=== PATIENT | male | born 1970 | race Caucasian/White ===

== ENCOUNTER 2023-04-21 01:06 | Emergency (ER) | payer OTHER, SELFPAY ==
[2023-04-21 01:10] VITALS: BP 125/77; PULSE 60; RESP 18; TEMP 36.7; O2SAT 97; BMI 25.8
--- NOTE | 2023-04-21 01:12 | CTR_ITS ---
PROCEDURE INFORMATION: Exam: CT Head Without Contrast Exam date and time: 04/21/2023 1:19 AM Age: 52 years old Clinical indication: Pain; Headache; Patient HX: Patient says he has a growing lump to right forehead for past two years. Lump is visible just superior to restorationism area. Patient says he has experienced alot of pressure and vision changes the past couple of months; Additional info: LAURA TECHNIQUE: Imaging protocol: Computed tomography of the head without contrast. Radiation optimization: All CT scans at this facility use at least one of these dose optimization techniques: automated exposure control; mA and/or kV adjustment per patient size (includes targeted exams where dose is matched to clinical indication); or iterative reconstruction. REPORTING DATA: Count of CT and Cardiac NM exams in prior 12 months: This patient has received 0 known CTs and 0 known cardiac nuclear medicine studies in the 12 months prior to the current study. COMPARISON: No relevant prior studies available. RADIATION DOSE METRICS: Total DLP (mGy-cm): 1059.88 FINDINGS: Brain: Normal. No hemorrhage. Unremarkable white matter. No mass effect. Cerebral ventricles: No ventriculomegaly. Paranasal sinuses: Visualized sinuses are unremarkable. No fluid levels. Mastoid air cells: Visualized mastoid air cells are well aerated. Bones/joints: A 2.5 cm x 1.2 cm x 1.8 cm arachnoid cyst in the right frontal lateral region results in remodeling of the right frontal bone, which can probably be palpable. No calvarial fracture. Soft tissues: Unremarkable. CT/CT head wo con* [id number] IMPRESSION: 1. No acute intracranial findings. 2. A 2.5 cm x 1.2 cm x 1.8 cm arachnoid cyst in the right frontal lateral region results in remodeling of the right frontal bone, which can probably be palpable.
--- NOTE | 2023-04-21 01:13 | W.ED.HA ---
HPI - Headache General: Chief Complaint: Headache Stated Complaint: headache vision changes Time Seen by Provider: 04/21/23 01:07 Source: patient Mode of arrival: ambulatory Limitations: no limitations History of Present Illness: 52-year-old male states been having bilateral temporal headaches for the last 6 months. He states his headaches are intermittent in nature he states that headaches currently a 4 out of 10 states that he has some vision changes at times but denies any currently no slurred speech no weakness. He denies any worsening proving factors he has not been seen for these headaches in the past. Associated symptoms: Deny chest pain, fever(s), nausea, rash or vomiting Review of Systems Const: Denies: fever(s), chills, body aches or change in appetite Eyes: Reports: blurry vision; Denies: eye discomfort ENMT: Denies: throat pain or dental pain Card: Denies: chest pain Resp: Denies: dyspnea GI: Denies: abdominal pain, nausea, vomiting or diarrhea Musc: Denies: neck pain or back pain Skin/Breast: Denies: rash Neuro: Reports: headache(s) Physical Exam Const: COMMON NORMALS: no acute distress, patient oriented x3 and healthy appearing HENMT: COMMON NORMALS: normocephalic and atraumatic HEAD & SCALP: normocephalic and atraumatic Eye: COMMON NORMALS: Equal, round and reactive pupils present and EOMs intact bilaterally VISUAL ACUITY: Yes acuity normal VISUAL RODRIGUEZ: No peripheral vision loss, No central vision loss, No left visual field cut, No right visual field cut and No bitemporal visual field cut PUPIL: Yes Equal, round and reactive pupils present Neck/C-Spine: COMMON NORMALS: full ROM and supple Chest: COMMONS NORMALS: normal inspection of the chest Resp: COMMON NORMALS: normal respiratory effort, No retractions, No use of accessory muscles and clear to auscultation bilaterally AUSCULTATION: clear to auscultation bilaterally Cardio: COMMON NORMALS: regular rate, regular rhythm and No murmurs present (Cardio) RATE: regular rate RHYTHM: regular rhythm Extremity: COMMON NORMALS: normal to inspection and full ROM Neuro: COMMON NORMALS: patient oriented x3, moves all extremities and no focal motor deficits Psych: COMMON NORMALS: mental status grossly normal, Normal thought process present and cooperative THOUGHT PROCESS: Normal thought process present Skin: COMMON NORMALS: no rashes or lesions noted and no wounds GENERAL SKIN EXAM: no rashes or lesions noted Course Vital Signs: Vital signs: Vital Signs Temperature 98.1 F 04/21/23 01:10 Pulse Rate 50 L 04/21/23 02:18 Respiratory Rate 16 04/21/23 02:18 Blood Pressure 112/73 04/21/23 02:18 Pulse Oximetry 95 04/21/23 02:18 Oxygen Delivery Me thod Room Air 04/21/23 02:18 MDM - Headache Medical Decision Making Patient presents here with a headache he does have a arachnoid cyst could be causing these chronic headaches head CT otherwise is normal he is to follow-up with PCP and return if worsening. Medical Records I reviewed the patient's medical records. Lab Data Radiology Impressions Head CT 04/21/23 01:12 IMPRESSION: 1. No acute intracranial findings. 2. A 2.5 cm x 1.2 cm x 1.8 cm arachnoid cyst in the right frontal lateral region results in remodeling of the right frontal bone, which can probably be palpable. All radiology interpretation(s) finalized by discharge Discharge Plan Discharge Patient Disposition: Home Clinical Impression: Headache, Intracranial arachnoid cyst Condition: Stable Discharge Orders: Discharge ED (Routine); Ordered 04/21/23 Ordered By: Yonatan England Referrals: Devonte Denis [Primary Care Provider] - 1-3 days Discharge Diet: Advance as tolerated Discharge Activity: Resume usual activity Patient Instructions: General Headache (ED) Coding Level of Care Code ED Stone Crusher Operator for Jessenia Trent
[2023-04-21] MEDS: ketorolac 30 mg/mL INJ IM (01:16)
[2023-04-21 01:21] VITALS: BP 116/79; RESP 15; O2SAT 98
[2023-04-21 02:18] VITALS: BP 112/73; PULSE 50; RESP 16; O2SAT 95
[2023-04-21 02:50] VITALS: BP 112/73; PULSE 50; RESP 16; O2SAT 95
== END 2023-04-21 02:51 | disposition home or self-care (01) ==
PROVIDERS: Emergency Provider Emergency Medicine; PCP Internal Medicine
DX: R51.9 Headache, unspecified (principal); G93.0 Cerebral cysts
CPT/HCPCS: 70450; 96372; 99284; J1885

== ENCOUNTER 2023-05-03 04:57 | Inpatient (IN) | payer OTHER, SELFPAY ==
[2023-05-03 05:04] VITALS: BP 163/100; PULSE 118; RESP 22; TEMP 37.2; O2SAT 98
--- NOTE | 2023-05-03 05:08 | ED_ITS ---
HPI - Abdominal Pain General: Chief Complaint: Psychiatric Symptoms Stated Complaint: stomach pains, nasea Time Seen by Provider: 05/03/23 04:58 Source: patient Mode of arrival: ambulatory Limitations: no limitations History of Present Illness: 52-year-old male who presents here stating he thinks that people are out to poison him. He states his whole family and has girlfriend has become seriously against him and he has brought some candy here he states they are trying to poison him. He states been having abdominal pain. Patient appears psychotic here he has flight of ideas. He states that he does not trust anyone he refused to speak to me at first but then did agree. He denies any psychiatric history denies drug use Associated Symptoms: Reports nausea; Denies chills, diarrhea, fever(s) and vomiting Review of Systems Const: Denies: fever(s), chills, body aches or change in appetite Eyes: Denies: blurry vision or eye discomfort ENMT: Denies: throat pain or dental pain Card: Denies: chest pain Resp: Denies: dyspnea GI: Reports: abdominal pain and nausea; Denies: vomiting or diarrhea Musc: Denies: neck pain or back pain Skin/Breast: Denies: rash Psych: Reports: anxiety; Denies: depression Physical Exam Const: COMMON NORMALS: patient oriented x3 GENERAL APPEARANCE: anxious and disheveled HENMT: COMMON NORMALS: normocephalic and atraumatic HEAD & SCALP: normocephalic and atraumatic Neck/C-Spine: COMMON NORMALS: full ROM and supple Chest: COMMONS NORMALS: normal inspection of the chest and normal palpation of entire chest wall Resp: COMMON NORMALS: normal respiratory effort, No retractions, No use of accessory muscles and clear to auscultation bilaterally AUSCULTATION: clear to auscultation bilaterally Cardio: COMMON NORMALS: regular rate, regular rhythm and No murmurs present (Cardio) RATE: regular rate RHYTHM: regular rhythm GI: COMMON NORMALS: Normal to inspection, nondistended, normoactive bowel sounds present, Soft to palpation, non-tender and no masses PALPATION: Yes Soft to palpation Extremity: COMMON NORMALS: normal to inspection and full ROM Neuro: COMMON NORMALS: patient oriented x3, moves all extremities and no focal motor deficits Psych: COMMON NORMALS: cooperative ACTIVITY/MOTOR BEHAVIOR: Yes psychomotor agitation SPEECH: Yes rapid MOOD & AFFECT: Yes elevated mood THOUGHT PROCESS: Flight of ideas present Skin: COMMON NORMALS: no rashes or lesions noted and no wounds GENERAL SKIN EXAM: no rashes or lesions noted Course Vital Signs: Vital signs: Vital Signs Temperature 97.8 F 05/03/23 14:00 Pulse Rate 79 05/03/23 14:00 Respiratory Rate 16 05/03/23 14:00 Blood Pressure 154/99 05/03/23 14:00 Pulse Oximetry 97 05/03/23 14:00 Oxygen Delivery Me thod Room Air 05/03/23 14:00 MDM - Abdominal Pain Medical Decision Making Patient presents here with abdominal pain along with acute psychosis. He is extremely paranoid here thinking that people are out to get him I did fill out an affidavit and patient's pending labs along with CT of his abdomen care turned over to Dr. Bales at this time. Will likely be a psychiatric admission if medically cleared Medical Records I reviewed the patient's medical records. Lab Data I reviewed the patient's lab results. 05/03/23 05:18 05/03/23 05:40 Labs/Radiology: Radiology Impressions Abdomen/Pelvis CT 05/03/23 05:30 IMPRESSION: No acute subdiaphragmatic pathology. Laboratory Results WBC 16.45 10^3/uL (3.29-11.43) H 05/03/23 05:18 RBC 4.96 10^6/uL (3.85-5.65) 05/03/23 05:18 Hgb 15.40 g/dL (11.27-16.99) 05/03/23 05:18 Hct 44.4 % (37-53) 05/03/23 05:18 MCV 89.5 fl (82-101) 05/03/23 05:18 MCH 31.0 pg (27-33) 05/03/23 05:18 MCHC 34.7 g/dL (30-55) 05/03/23 05:18 RDW 13.1 % (12.1-15.1) 05/03/23 05:18 Plt Count 192 10^3/cmm (157-399) 05/03/23 05:18 MPV 12.0 fL (7.4-10.4) H 05/03/23 05:18 Neut % (Auto) 68.0 % 05/03/23 05:18 Lymph % (Auto) 23.3 % 05/03/23 05:18 [place] % (Auto) 7.1 % 05/03/23 05:18 Eos % (Auto) 0.5 % 05/03/23 05:18 Baso % (Auto) 0.7 % 05/03/23 05:18 Neut # (Auto) 11.18 10^3/uL (1.8-7.7) H 05/03/23 05:18 Lymph # (Auto) 3.8 10^3/uL (0.8-4.8) 05/03/23 05:18 [place] # (Auto) 1.2 10^3/uL (0.2-0.9) H 05/03/23 05:18 Eos # (Auto) 0.1 10^3/uL (0.0-0.8) 05/03/23 05:18 Baso # (Auto) 0.1 10^3/uL (0.0-0.1) 05/03/23 05:18 Nucleated RBC % (auto) 0 % 05/03/23 05:18 Nucleated RBCs # 0.0 /100WBC 05/03/23 05:18 Sodium 141 mmol/L (136-145) 05/03/23 05:40 Potassium 3.3 mmol/L (3.5-5.1) L 05/03/23 05:40 Chloride 106 mmol/L (98-107) 05/03/23 05:40 Carbon Dioxide 22 mmol/L (22-29) 05/03/23 05:40 Anion Gap 16.3 (5-19) 05/03/23 05:40 BUN 20 mg/dL (6-20) 05/03/23 05:40 Creatinine 1.0 mg/dL (0.7-1.2) 05/03/23 05:40 GFR Calculation 78.5 mL/min (90-130) L 05/03/23 05:40 Glucose 123 mg/dL (65-115) H 05/03/23 05:40 Calculated Osmolality 296 mOsm/kg (285-295) H 05/03/23 05:40 Calcium 9.8 mg/dL (8.5-10.5) 05/03/23 05:40 Total Bilirubin 0.8 mg/dL (0.15-1.2) 05/03/23 05:40 AST 16 U/L (0-40) 05/03/23 05:40 ALT 10 U/L (0-41) 05/03/23 05:40 Alkaline Phosphatase 105 U/L (40-130) 05/03/23 05:40 Total Protein 7.4 g/dL (6.6-8.7) 05/03/23 05:40 Albumin 4.6 g/dL (3.5-5.2) 05/03/23 05:40 Globulin 2.8 g/dL (1.3-4.6) 05/03/23 05:40 Lipase 40 U/L (13-60) 05/03/23 05:40 Urine Color Dark yellow (Yellow) 05/03/23 05:40 Urine Appearance Clear (CLEAR) 05/03/23 05:40 Urine pH 5 (5-7) 05/03/23 05:40 Ur Specific [place] 1.025 (1.005-1.030) 05/03/23 05:40 Urine Protein 1+ (Negative) H 05/03/23 05:40 Urine Glucose (UA) Trace (Normal) H 05/03/23 05:40 Urine Ketones 1+ (Negative) H 05/03/23 05:40 Urine Blood Neg (Negative) 05/03/23 05:40 Urine Nitrate Negative (Negative) 05/03/23 05:40 Urine Bilirubin 1+ (Negative) H 05/03/23 05:40 Urine Urobilinogen 4 mg/dL (Negative) H 05/03/23 05:40 Ur Leukocyte Esterase Trace (Negative) H 05/03/23 05:40 Urine RBC Rare /hpf (0-2) 05/03/23 05:40 Urine WBC 0-4 /hpf (0-5) H 05/03/23 05:40 Ur Squamous Epith Cells 0-4 /hpf (0-5) H 05/03/23 05:40 Amorphous Sediment 1+ /hpf 05/03/23 05:40 Urine Bacteria Trace /hpf (NONE) 05/03/23 05:40 Hyaline Casts 0-4 /lpf H 05/03/23 05:40 Urine Mucus 2+ /hpf 05/03/23 05:40 Salicylates 0.6 mg/dL (3-10) L 05/03/23 05:40 Urine Opiates Screen Negative ng/mL (Negative) 05/03/23 05:40 Acetaminophen < 5.0 ug/mL (10-30) L 05/03/23 05:40 Ur Barbiturates Screen Negative ng/mL (Negative) 05/03/23 05:40 Ur Phencyclidine Scrn Negative ng/mL (Negative) 05/03/23 05:40 Ur Amphetamines Screen Negative ng/mL (Negative) 05/03/23 05:40 U Benzodiazepines Scrn Negative ng/mL (Negative) 05/03/23 05:40 Urine Cocaine Screen Negative ng/mL (Negative) 05/03/23 05:40 U Marijuana (THC) Screen Positive ng/mL (Negative) H 05/03/23 05:40 Ethyl Alcohol Cancelled 05/03/23 05:18 All radiology interpretation(s) finalized by discharge Discharge Plan Discharge Patient Disposition: Admitted As Inpatient Admit Provider: Gordo Phelan Clinical Impression: Acute psychosis Condition: Stable Coding Level of Care Code ED Semiautomatic Taper Operator for Jessenia Trent
[2023-05-03 05:28] LABS: Basophils # 0.1 10^3/uL (0.0-0.1); Basophils % 0.7 %; Eosinophils # 0.1 10^3/uL (0.0-0.8); Eosinophils % 0.5 %; Hematocrit 44.4 % (37-53); Lymphocytes # 3.8 10^3/uL (0.8-4.8); Lymphocytes % 23.3 %; Mean Corpuscular HGB Conc 34.7 g/dL (30-55); Mean Corpuscular Volume 89.5 fl (82-101); Monocytes # 1.2 10^3/uL (0.2-0.9); Monocytes % 7.1 %; Neutrophils # 11.18 10^3/uL (1.8-7.7); Nucleated Red Blood Cells % 0 %; Platelet Count 192 10^3/cmm (157-399); Red Blood Count 4.96 10^6/uL (3.85-5.65); Red Cell Distribution Width 13.1 % (12.1-15.1); White Blood Count 16.45 10^3/uL (3.29-11.43)
--- NOTE | 2023-05-03 05:30 | CTR_ITS ---
PROCEDURE INFORMATION: Exam: CT Abdomen And Pelvis With Contrast Exam date and time: 05/03/2023 6:07 AM Age: 52 years old Clinical indication: Abdominal pain; Generalized; Prior surgery; Surgery date: 6+ months; Surgery type: Appy; Patient HX: Diffuse abd pain with nausea TECHNIQUE: Imaging protocol: Computed tomography of the abdomen and pelvis with contrast. Radiation optimization: All CT scans at this facility use at least one of these dose optimization techniques: automated exposure control; mA and/or kV adjustment per patient size (includes targeted exams where dose is matched to clinical indication); or iterative reconstruction. Contrast material: OMNI 350; Contrast volume: 100 ml; Contrast route: INTRAVENOUS (IV); REPORTING DATA: Count of CT and Cardiac NM exams in prior 12 months: This patient has received [address] and 0 known cardiac nuclear medicine studies in the 12 months prior to the current study. COMPARISON: CR XR chest 1V [id number] 06/18/2018 1:54 PM RADIATION DOSE METRICS: Total DLP (mGy-cm): 433.68 FINDINGS: Liver: Tiny hepatic cysts. Gallbladder and bile ducts: Normal. No calcified stones. No ductal dilation. Pancreas: Normal. No ductal dilation. Spleen: Normal. No splenomegaly. Adrenal glands: Normal. No mass. Kidneys and ureters: Nonobstructing renal calculi. Stomach and bowel: Unremarkable. No obstruction. No mucosal thickening. Appendix: No evidence of appendicitis. Intraperitoneal space: Unremarkable. No free air. No significant fluid collection. Vasculature: Unremarkable. No abdominal aortic aneurysm. Lymph nodes: Unremarkable. No enlarged lymph nodes. Urinary bladder: Unremarkable as visualized. Reproductive: Unremarkable as visualized. Bones/joints: Mild changes of subchondral sclerosis in each proximal femur, mild avascular necrosis is. Soft tissues: Unremarkable. CT/CT abdomen pelvis w con* [id number] IMPRESSION: No acute subdiaphragmatic pathology.
--- NOTE | 2023-05-03 05:51 | ECG_ITS ---
[facility] Test Date: 2023-05-03 Pat Name: David Varma Department: Room: Gender: Male Tipple Mechanic: : 1970 Requested By: Yonatan England Order Number: [id number] Jazzy MD: Khoa Pickens M.D. Measurements Intervals [place] Rate: 70 P: 72 AL: 144 QRS: 65 QRSD: 92 T: 60 QT: 384 QTc: 416 Interpretive Statements SINUS RHYTHM WITH SINUS ARRHYTHMIA Normal ECG Compared to ECG 06/18/2018 16:12:17 Sinus bradycardia no longer present Electronically Signed On 05-03-2023 13:38:55 WATER SANDER by Khoa Pickens M.D. [email or web address]
[2023-05-03 06:08] LABS: Amphetamines Screen Urine Negative (Negative); Barbiturates Screen Urine Negative (Negative); Benzodiazepines Screen Urine Negative (Negative); Cocaine Screen Urine Negative (Negative); Opiate Screen Urine Negative (Negative); PCP Screen Urine Negative (Negative); THC Screen Urine Positive (Negative)
[2023-05-03 06:09] LABS: Glucose Urine UA Trace (Normal); Protein Urine 1+ (Negative); Specific Gravity, Urine 1.025 (1.005-1.030); Urine Appearance Clear (CLEAR); Urine Color Dark Yellow (Yellow); pH Urine 5 (5-7)
[2023-05-03] MEDS: iohexol 350 mg/mL 500 mL Btl (per mL) IV (06:09)
[2023-05-03 06:10] LABS: Add Urine Culture? No; Add Urine Microscopic? YES; Amorphous Sediment Urine 1+ /hpf; Bacteria Urine TRACE /hpf; Bilirubin Urine 1+ (Negative); Blood Urine Neg (Negative); Hyaline Casts Urine 0-4 /lpf; Ketones Urine 1+ (Negative); Leukocyte Esterase Urine Trace (Negative); Mucus Urine 2+ /hpf; Nitrate Urine Negative (Negative); RBC Urine RARE /hpf (0-2); Squamous Epithelial Cell Urine 0-4 /hpf (0-5); Urobilinogen Urine 4 mg/dL (Negative); WBC Urine 0-4 /hpf (0-5)
[2023-05-03 06:17] LABS: Alanine Aminotransferase 10 U/L (0-41); Albumin Level 4.6 g/dL (3.5-5.2); Alkaline Phosphatase 105 U/L (40-130); Anion Gap 16.3 (5-19); Aspartate Amino Transferase 16 U/L (0-40); Blood Urea Nitrogen 20 mg/dL (6-20); Calcium 9.8 mg/dL (8.5-10.5); Carbon Dioxide 22 mmol/L (22-29); Chloride 106 mmol/L (98-107); Globulin 2.8 g/dL (1.3-4.6); Glomerular Filtration Rate 78.5 mL/min (90-130); Glucose 123 mg/dL (65-115); Lipase 40 U/L (13-60); Osmolality Calculated 296 mOsm/kg (285-295); Potassium 3.3 mmol/L (3.5-5.1); Salicylate 0.6 mg/dL (3-10); Sodium 141 mmol/L (136-145); Total Bilirubin 0.8 mg/dL (0.15-1.2); Total Protein 7.4 g/dL (6.6-8.7)
[2023-05-03 06:18] LABS: Acetaminophen < 5.0 ug/mL (10-30)
[2023-05-03 09:28] VITALS: BP 122/81; PULSE 57; O2SAT 98
[2023-05-03 09:36] VITALS: BP 154/99; PULSE 79; RESP 16; TEMP 36.6; O2SAT 97
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
[2023-05-03 14:00] VITALS: BP 154/99; PULSE 79; RESP 16; TEMP 36.6; O2SAT 97
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
[2023-05-03 18:49] LABS: Basophils # 0.1 10^3/uL (0.0-0.1); Basophils % 1.2 %; Eosinophils # 0.2 10^3/uL (0.0-0.8); Eosinophils % 2.6 %; Hematocrit 45.3 % (37-53); Lymphocytes # 3.4 10^3/uL (0.8-4.8); Lymphocytes % 42.3 %; Mean Corpuscular HGB Conc 34.4 g/dL (30-55); Mean Corpuscular Hemoglobin 31.1 pg (27-33); Mean Corpuscular Volume 90.4 fl (82-101); Mean Platelet Volume 12.2 fL (7.4-10.4); Monocytes # 0.9 10^3/uL (0.2-0.9); Monocytes % 10.8 %; Neutrophils # 3.44 10^3/uL (1.8-7.7); Neutrophils % 42.9 %; Nucleated Red Blood Cells % 0 %; Platelet Count 137 10^3/cmm (157-399); Red Blood Count 5.01 10^6/uL (3.85-5.65); Red Cell Distribution Width 13.2 % (12.1-15.1); White Blood Count 8.04 10^3/uL (3.29-11.43)
[2023-05-03 18:50] LABS: Erythrocyte Sedimentation Rate 10 mm/hr (0-10)
[2023-05-03 19:12] LABS: Alanine Aminotransferase 9 U/L (0-41); Albumin Level 4.7 g/dL (3.5-5.2); Alkaline Phosphatase 103 U/L (40-130); Anion Gap 15.3 (5-19); Aspartate Amino Transferase 15 U/L (0-40); Blood Urea Nitrogen 18 mg/dL (6-20); Calcium 9.5 mg/dL (8.5-10.5); Carbon Dioxide 25 mmol/L (22-29); Chloride 101 mmol/L (98-107); Creatinine Clr Calc Pharmacy 107.0514; Globulin 2.6 g/dL (1.3-4.6); Glomerular Filtration Rate 101.5 mL/min (90-130); Glucose 100 mg/dL (65-115); Osmolality Calculated 288 mOsm/kg (285-295); Potassium 3.3 mmol/L (3.5-5.1); Sodium 138 mmol/L (136-145); Total Bilirubin 0.9 mg/dL (0.15-1.2); Total Protein 7.3 g/dL (6.6-8.7)
[2023-05-03 19:21] LABS: Slide Review Slide Review Perform
[2023-05-03 19:58] VITALS: BP 120/86; PULSE 98; RESP 18; O2SAT 97
[2023-05-03] MEDS: potassium chloride ER 20 mEq Tablet 40 MEQ PO (22:43)
[2023-05-04 06:00] VITALS: BP 123/83; PULSE 63; RESP 18; O2SAT 97
[2023-05-04] MEDS: potassium chloride ER 20 mEq Tablet 40 MEQ PO (09:25)
--- NOTE | 2023-05-04 09:26 | PC.NURSE ---
RECEIVED REPORT FROM CONSULTING SOLUTION DIRECTOR STATING THAT PT SPIT OUT HIS ONE TIME ORDER OF POTASSIUM. THIS WAS CONFIRMED THIS MORNING BY PT STATEMENTS. PT STATED THAT HE DID NOT TRUST THE NIGHT NURSE STATING THAT HE WAS UNCOMFORTABLE HOW BIG THEY WERE AND THE WAY SHE GAVE THEM TO ME. PHYSICIAN WAS NOTIFIED THIS MORNING AND GAVE VERBAL ORDER TO THIS NURSE TO REORDER THE MEDICATION AND ADMINISTER IT PT STATED HE WOULD BE WILLING TO TAKE MEDICATION FROM THIS NURSE.
[2023-05-04 14:00] VITALS: BP 126/85; PULSE 61; RESP 14; TEMP 36.9; O2SAT 98
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
[2023-05-04 20:30] VITALS: BP 158/92; PULSE 58; RESP 18; TEMP 36.7; O2SAT 99
--- NOTE | 2023-05-05 08:51 | PC.NURSE ---
shift assessment denies SI/HI, did state I am having hallucinations yes, seeing things, but they are blurry. told staff this is not normal for him. cooperative with care.
[2023-05-05 14:00] VITALS: BP 144/89; PULSE 63; RESP 16; TEMP 36.6; O2SAT 97
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
[2023-05-05 20:25] VITALS: BP 161/89; PULSE 63; RESP 18; TEMP 36.6; O2SAT 99
[2023-05-06 06:00] VITALS: RESP 16
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
[2023-05-06 14:00] VITALS: BP 128/83; PULSE 72; RESP 16; TEMP 36.4; O2SAT 95
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
[2023-05-06 20:07] VITALS: BP 143/92; PULSE 63; RESP 17; TEMP 36.6; O2SAT 97
[2023-05-06] MEDS: paliperidone ER 3 mg Tablet PO (20:32)
[2023-05-06] MEDS: trazodone 50 mg Tablet PO (20:32)
--- NOTE | 2023-05-06 21:19 | PC.NURSE ---
Patient approached the desk and asked to speak in private. He stated he felt like he could be targeted because felt there were 2 former prisoners here and they where making shanks in the day room and talking intermediate lingo . I reminded him that we round every 15 minutes and if he ever feels unsafe to come talk to staff. Also to let staff know next time they are making a shank . Patient stated that cleared his mind and that he felt like he would sleep better tonight.
[2023-05-07 06:00] VITALS: BP 138/90; PULSE 101; RESP 18; O2SAT 96
[2023-05-07 14:00] VITALS: BP 130/89; PULSE 64; RESP 16; TEMP 36.3; O2SAT 99
--- NOTE | 2023-05-07 16:45 | P.NPUPN_ITS ---
Subjective NPU 2 Subjective: Patient presented today reporting that he is feeling okay. He denied having any side effects from the medication. He did spend a lot of time talking about cueing on and possibly being poisoned. We discussed the fact that we protect the food and that the food is given to everyone and that there is no concern for being poisoned. He reports that he understands that he is not thinking clearly and that he needs to be here and he appreciates the help. We discussed the possibility of a 96-hour hold given his level of paranoia. We did viral the likely need for an increase in the medication. Mental Status Exam 2 MSE Comments: This is a well-nourished well-developed white male in hospital scrubs with poor grooming, hygiene and limited eye contact. No abnormal movements except for mild psychomotor retardation. Cooperative with exam in mild distress. Speech was limited and decreased rate and volume. Mood described as good affect odd. Thought process organized. Thought content: Patient denied suicidal or homicidal ideation, he did endorse paranoia but denied current auditory or visual hallucinations. He was noteworthy of having significant conspiracies and paranoia. Attention and concentration were intact and memory was unreliable but none were formally tested. He is alert and oriented times person and place. Insight and judgment and impulse control are impaired. Vitals/I&O/Wt Last Vital Signs Temp 97.7 F 05/07/23 20:23 Pulse 65 05/07/23 20:23 Resp 18 05/07/23 20:23 BP 139/94 05/07/23 20:23 Pulse Ox 98 05/07/23 20:23 O2 Del Method Room Air 05/07/23 20:23 Data NPU 05/03/23 18:35 05/03/23 18:35 A&P Assessment and plan (1) Unspecified psychosis: Plan 52-year-old male with significant male who presents with bizarre delusions and paranoia currently on no medications at this time. 1. Encourage individual, group and milieu therapy. 2. Recommend sober living treatment at the highest level of care to which the patient is willing to commit. 3. Continue q-15 minute checks for safety.? 4? Will attempt to gather collateral information. 5. Patient was agreeable to trial of Invega today at 3mg at night, he may require forced medications on involuntary hold if deemed unsafe to return home. Increase Invega to 6 mg p.o. daily. Involuntary Hold Information 2 96 Hour Hold: 96 Hour Involuntary Admission: No Attestations NPU 2 Medical Necessity Statement*: Inpatient hospitalization is medically necessary and deemed to ?be ?the clinically appropriate intervention ?at this time.? We will monitor/initiate medications and make changes as indicated.?? The patient?s likely length of stay 7-10 days. Coding Level of Care Code Acute Code for Chg Fwd Diagnoses Unspecified psychosis F29
[2023-05-07] MEDS: paliperidone ER 3 mg Tablet 6 MG PO (20:11)
[2023-05-07 20:23] VITALS: BP 139/94; PULSE 65; RESP 18; TEMP 36.5; O2SAT 98
[2023-05-08 06:00] VITALS: RESP 17
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
--- NOTE | 2023-05-08 09:03 | P.NPUPN_ITS ---
Subjective NPU 2 Subjective: Patient presented today reporting that he is doing okay. He reports that he is tolerating the medication and he denied any specific side effects. He reports he is tolerating the increase as well. We discussed his long-term plan and he clearly is feeling things are safer and more optimistic with his connection with the unit. He is working with the social work team for appropriate discharge options. We discussed possibly being able to consider next week with his continued improvement. Mental Status Exam 2 MSE Comments: This is a well-nourished well-developed white male in hospital scrubs with poor grooming, hygiene and limited eye contact. No abnormal movements except for mild psychomotor retardation. Cooperative with exam in mild distress. Speech was limited and decreased rate and volume. Mood described as good affect odd. Thought process organized. Thought content: Patient denied suicidal or homicidal ideation, he did endorse paranoia but denied current auditory or visual hallucinations. He was noteworthy of having significant conspiracies and paranoia. Attention and concentration were intact and memory was unreliable but none were formally tested. He is alert and oriented times person and place. Insight and judgment and impulse control are impaired. Vitals/I&O/Wt Last Vital Signs Temp 97.7 F 05/07/23 20:23 Pulse 65 05/07/23 20:23 Resp 17 05/08/23 06:00 BP 139/94 05/07/23 20:23 Pulse Ox 98 05/07/23 20:23 O2 Del Method Room Air 05/07/23 20:23 Data NPU 05/03/23 18:35 05/03/23 18:35 A&P Assessment and plan (1) Unspecified psychosis: Plan 52-year-old male with significant male who presents with bizarre delusions and paranoia currently on no medications at this time. 1. Encourage individual, group and milieu therapy. 2. Recommend sober living treatment at the highest level of care to which the patient is willing to commit. 3. Continue q-15 minute checks for safety.? 4? Will attempt to gather collateral information. 5. Patient was agreeable to trial of Invega today at 3mg at night, he may require forced medications on involuntary hold if deemed unsafe to return home. Increased Invega to 6 mg p.o. daily. Involuntary Hold Information 2 96 Hour Hold: 96 Hour Involuntary Admission: No Attestations NPU 2 Medical Necessity Statement*: Inpatient hospitalization is medically necessary and deemed to ?be ?the clinically appropriate intervention ?at this time.? We will monitor/initiate medications and make changes as indicated.?? The patient?s likely length of stay 6-9 days. Coding Level of Care Code Acute Code for Chg Fwd Diagnoses Unspecified psychosis F29
[2023-05-08 14:00] VITALS: BP 144/82; PULSE 60; RESP 20; TEMP 36.4; O2SAT 99
[2023-05-08] MEDS: paliperidone ER 3 mg Tablet 6 MG PO (20:08)
[2023-05-08] MEDS: trazodone 50 mg Tablet PO (20:10)
[2023-05-08 20:17] VITALS: BP 132/82; PULSE 65; RESP 16; TEMP 36.6; O2SAT 98
--- NOTE | 2023-05-09 06:42 | PC.NURSE ---
resp 18
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
[2023-05-09 14:00] VITALS: BP 137/94; PULSE 71; RESP 16; TEMP 36.3; O2SAT 97
[2023-05-09 20:31] VITALS: BP 146/96; PULSE 67; RESP 17; TEMP 36.5; O2SAT 98
[2023-05-09] MEDS: trazodone 50 mg Tablet PO (21:33)
[2023-05-09] MEDS: paliperidone ER 3 mg Tablet 6 MG PO (21:33)
[2023-05-10 06:00] VITALS: BP 133/99; PULSE 92; RESP 18; O2SAT 97
--- NOTE | 2023-05-10 07:52 | P.NPUPN_ITS ---
Subjective NPU 2 Subjective: Patient presented today reporting that he was doing all right. He identified that he was feeling okay after his meal but was still holding his stomach and feeling like something was going on. He reports that he was wondering if there was anything like what he saw on the Internet for getting all the bugs, worms and parasites out of people. We discussed that there was no indication that he had any parasites and that needing to be dewormed is not something that she is seeing human beings as a standard. He denies any side effects from the medication. Mental Status Exam 2 MSE Comments: This is a well-nourished well-developed white male in hospital scrubs with poor grooming, hygiene and limited eye contact. No abnormal movements except for mild psychomotor retardation. Cooperative with exam in moderate distress. Speech was normal rate and decreased volume. Mood described as a little better, affect odd and anxious. Thought process organized. Thought content: Patient denied suicidal or homicidal ideation, he did endorse paranoia but denied current auditory or visual hallucinations. He was noteworthy of having significant conspiracies and paranoia believing that he had been once again poisoned that breakfast this morning. Attention and concentration were intact and memory was unreliable but none were formally tested. He is alert and oriented times person and place. Insight and judgment and impulse control are impaired. Vitals/I&O/Wt Last Vital Signs Temp 97.7 F 05/09/23 20:31 Pulse 92 05/10/23 06:00 Resp 18 05/10/23 06:00 BP 133/99 05/10/23 06:00 Pulse Ox 97 05/10/23 06:00 O2 Del Method Room Air 05/10/23 06:00 05/09/23 05/10/23 05/10/23 22:59 06:59 14:59 Intake Total 500 / 900 Balance 500 / 900 Weight last 48 hrs Weight 72.291 kg Data NPU 05/03/23 18:35 05/03/23 18:35 A&P Assessment and plan (1) Unspecified psychosis: Plan 52-year-old male with significant male who presents with bizarre delusions and paranoia currently on no medications at this time. 1. Encourage individual, group and milieu therapy. 2. Recommend sober living treatment at the highest level of care to which the patient is willing to commit. 3. Continue q-15 minute checks for safety.? 4? Will attempt to gather collateral information. 5. Patient was agreeable to trial of Invega today at 3mg at night, he may require forced medications on involuntary hold if deemed unsafe to return home. Increased Invega to 6 mg p.o. daily. Consider increasing Invega to 9 mg. Involuntary Hold Information 2 96 Hour Hold: 96 Hour Involuntary Admission: No Attestations NPU 2 Medical Necessity Statement*: Inpatient hospitalization is medically necessary and deemed to ?be ?the clinically appropriate intervention ?at this time.? We will monitor/initiate medications and make changes as indicated.?? The patient?s likely length of stay 5-8 days. Coding Level of Care Code Acute Code for Chg Fwd Diagnoses Unspecified psychosis F29
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
[2023-05-10 14:00] VITALS: BP 126/89; PULSE 74; RESP 16; TEMP 36.3; O2SAT 99
[2023-05-10 20:09] VITALS: BP 134/89; PULSE 85; RESP 18; O2SAT 98
[2023-05-10] MEDS: trazodone 50 mg Tablet PO (20:22)
[2023-05-10] MEDS: paliperidone ER 3 mg Tablet 6 MG PO (20:22)
[2023-05-11 06:00] VITALS: BP 110/76; PULSE 88; RESP 18; O2SAT 98
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
[2023-05-11 14:00] VITALS: BP 117/87; PULSE 102; RESP 16; TEMP 36.7; O2SAT 99
[2023-05-11 20:20] VITALS: BP 119/78; PULSE 81; RESP 18; TEMP 36.6; O2SAT 98
[2023-05-11] MEDS: paliperidone ER 3 mg Tablet 9 MG PO (20:30)
[2023-05-11] MEDS: trazodone 50 mg Tablet PO (20:32)
[2023-05-12 06:00] VITALS: RESP 16
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
[2023-05-12 14:00] VITALS: BP 126/87; PULSE 85; RESP 20; TEMP 36.6; O2SAT 98
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
[2023-05-12 20:32] VITALS: BP 137/91; PULSE 81; RESP 18; TEMP 36.6; O2SAT 98
[2023-05-12] MEDS: paliperidone ER 3 mg Tablet 9 MG PO (20:34)
[2023-05-12] MEDS: trazodone 50 mg Tablet PO (20:34)
[2023-05-13 06:00] VITALS: BP 122/87; PULSE 86; RESP 20; O2SAT 94
[2023-05-13 14:00] VITALS: BP 120/79; PULSE 83; RESP 16; TEMP 36.3; O2SAT 97
--- NOTE | 2023-05-13 16:24 | P.NPUPN_ITS ---
Subjective NPU 2 Subjective: Patient presented today reporting that he is doing okay. He has continued to decrease in these reports of poisoning etc. We discussed the importance of him continuing his medication and introduced the idea of the long-acting injectable. He reports he will stay here as long as we want. We discussed the risks, benefits and alternatives of switching to a long-acting injectable and he understood and agreed to consider it as documented in this note. He denied any side effects of the medication. Mental Status Exam 2 MSE Comments: This is a well-nourished well-developed white male in hospital scrubs with poor grooming, hygiene and limited eye contact. No abnormal movements except for mild psychomotor retardation. Cooperative with exam in mild distress. Speech was normal rate and decreased volume. Mood described as a little better, affect odd and anxious. Thought process organized. Thought content: Patient denied suicidal or homicidal ideation, he did endorse paranoia but denied current auditory or visual hallucinations. He was noteworthy of having significant conspiracies and paranoia but less adamant about them. Attention and concentration were intact and memory was unreliable but none were formally tested. He is alert and oriented times person and place. Insight and judgment and impulse control are impaired, but showing some improvement. Vitals/I&O/Wt Last Vital Signs Temp 97.4 F L 05/13/23 14:00 Pulse 83 05/13/23 14:00 Resp 16 05/13/23 14:00 BP 120/79 05/13/23 14:00 Pulse Ox 97 05/13/23 14:00 O2 Del Method Room Air 05/13/23 06:00 Data NPU 05/03/23 18:35 05/03/23 18:35 A&P Assessment and plan (1) Unspecified psychosis: Plan 52-year-old male with significant male who presents with bizarre delusions and paranoia currently on no medications at this time. 1. Encourage individual, group and milieu therapy. 2. Recommend sober living treatment at the highest level of care to which the patient is willing to commit. 3. Continue q-15 minute checks for safety.? 4? Will attempt to gather collateral information. 5. Patient was agreeable to trial of Invega today at 3mg at night, he may require forced medications on involuntary hold if deemed unsafe to return home. Increased Invega to 6 mg p.o. daily. Increased Invega to 9 mg.. Offer him long-acting injectable. 6. Filed for 21-day hold. He was served by the [facility]'s department. Will consider discontinuing the hearing, allowing him to sign in with discharge in the next few days. Involuntary Hold Information 2 96 Hour Hold: 96 Hour Involuntary Admission: No Attestations NPU 2 Medical Necessity Statement*: Inpatient hospitalization is medically necessary and deemed to ?be ?the clinically appropriate intervention ?at this time.? We will monitor/initiate medications and make changes as indicated.?? The patient?s likely length of stay 2-5 days. Coding Level of Care Code Acute Code for Chg Fwd Diagnoses Unspecified psychosis F29
[2023-05-13 19:46] VITALS: BP 133/94; PULSE 92; RESP 17; TEMP 36.9; O2SAT 97
[2023-05-13] MEDS: trazodone 50 mg Tablet PO (20:27)
[2023-05-13] MEDS: paliperidone ER 3 mg Tablet 9 MG PO (20:27)
[2023-05-14 06:00] VITALS: BP 122/75; PULSE 65; RESP 18; O2SAT 100
--- NOTE | 2023-05-14 13:50 | P.NPUPN_ITS ---
Subjective NPU 2 Subjective: Patient presented today reporting that he is feeling better. We discussed not having his 21-day hold hearing and likely discharging him on Thursday. We discussed the risks, benefits and alternatives of starting Invega Sustenna and he understood and agreed to proceed as is documented in this note. We discussed the likelihood of discharge in the next 48 hours but most likely discharge in the morning. Mental Status Exam 2 MSE Comments: This is a well-nourished well-developed white male in hospital scrubs with improving grooming/hygiene and eye contact. No abnormal movements except for mild psychomotor retardation. Cooperative with exam in no acute distress. Speech was normal rate and decreased volume. Mood described as a little better, affect congruent. Thought process organized. Thought content: Patient denied suicidal or homicidal ideation, he did endorse paranoia but denied current auditory or visual hallucinations. Conspiracies and paranoia greatly reduced. Attention and concentration were intact and memory was unreliable but none were formally tested. He is alert and oriented times person and place. Insight and judgment and impulse control are improving. Vitals/I&O/Wt Last Vital Signs Temp 98.1 F 05/14/23 14:00 Pulse 65 05/14/23 14:00 Resp 18 05/14/23 14:00 BP 143/87 05/14/23 14:00 Pulse Ox 99 05/14/23 14:00 O2 Del Method Room Air 05/14/23 14:00 Data NPU 05/03/23 18:35 05/03/23 18:35 A&P Assessment and plan (1) Unspecified psychosis: Plan 52-year-old male with significant male who presents with bizarre delusions and paranoia currently on no medications at this time. 1. Encourage individual, group and milieu therapy. 2. Recommend sober living treatment at the highest level of care to which the patient is willing to commit. 3. Continue q-15 minute checks for safety.? 4? Will attempt to gather collateral information. 5. Patient was agreeable to trial of Invega today at 3mg at night, he may require forced medications on involuntary hold if deemed unsafe to return home. Increased Invega to 6 mg p.o. daily. Increased Invega to 9 mg.. Patient agreeable to Invega Sustenna. Will give 234 mg IM to deltoid loading dose today, 05/14/2023.. 6. Filed for 21-day hold. He was served by the [facility]'s department. Discontinued/cancelled 21-day hold hearing and DC tomorrow. Involuntary Hold Information 2 96 Hour Hold: 96 Hour Involuntary Admission: No Attestations NPU 2 Medical Necessity Statement*: Inpatient hospitalization is medically necessary and deemed to ?be ?the clinically appropriate intervention ?at this time.? We will monitor/initiate medications and make changes as indicated.?? The patient?s likely length of stay 1-3 days. Coding Level of Care Code Acute Code for Chg Fwd Diagnoses Unspecified psychosis F29
[2023-05-14 14:00] VITALS: BP 143/87; PULSE 65; RESP 18; TEMP 36.7; O2SAT 99
[2023-05-14] MEDS: paliperidone palmitate 234 mg Syringe IM (15:49)
--- NOTE | 2023-05-14 15:57 | PC.NURSE ---
Administered med in Right Deltoid 234mg IM INVEGA, pt tolerated well.
[2023-05-14 20:21] VITALS: BP 131/87; PULSE 73; RESP 18; O2SAT 97
[2023-05-14] MEDS: trazodone 50 mg Tablet PO (20:34)
[2023-05-14] MEDS: acetaminophen 325 mg Tablet 650 MG PO (20:34)
[2023-05-14] MEDS: paliperidone ER 3 mg Tablet 9 MG PO (20:34)
[2023-05-15 06:00] VITALS: BP 125/85; PULSE 73; RESP 16; TEMP 36.7; O2SAT 98
[2023-05-15 14:00] VITALS: BP 126/81; PULSE 66; RESP 16; TEMP 36.6; O2SAT 98
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
[2023-05-15 16:35] VITALS: BP 126/81; PULSE 66; RESP 16; TEMP 36.6; O2SAT 98
[2023-05-15 16:36] VITALS: BP 126/81; PULSE 66; RESP 16; TEMP 36.6; O2SAT 98
--- NOTE | 2023-05-15 16:54 | PC.NURSE ---
written discharge instruction discussed and left with patient. pt stated understanding and compliance.
== END 2023-05-15 17:00 | disposition home or self-care (01) | DRG 885 ==
LOC: ER 06:03 → NP 09:21
PROVIDERS: Emergency Medicine; Admitting Provider Psychiatry & Neurology Psychiatry; Emergency Provider Internal Medicine; PCP Internal Medicine; Visit Provider Psychiatry & Neurology Psychiatry
DX: F29 Unspecified psychosis not due to a substance or known physiological condition (principal)
CPT/HCPCS: 36415; 74177; 80053; 80306; 80307; 81001; 83690; 85025; 85651; 86140; 93005; 93010; 96372; 97150; 97165; 99285; Q9967